=== PATIENT | female | born 2000 | race African-American/Black ===

== ENCOUNTER 2021-05-14 15:10 | Observation (INO) | payer MEDICAID, SELFPAY ==
[~2021-05-14] VITALS: Ht 154.9 cm; Wt 85.3 kg
[~2021-05-14 15:10] MED LIST: FERR-252 PO; PNV91TAB8 PO
[2021-05-14] MEDS ORDERED: BETAMETH ACET/BETAMETH NA PH 30 MG/5 ML VIAL IM SCH (15:20)
[2021-05-14 15:22] VITALS: BP 107/55
== END 2021-05-14 15:50 | disposition home or self-care (01) ==
LOC: MLD 15:10
PROVIDERS: ADMIT Obstetrics & Gynecology; ATTEND Obstetrics & Gynecology
DX: O26.893 Other specified pregnancy related conditions, third trimester (principal); R10.9 Unspecified abdominal pain; Z3A.30 30 weeks gestation of pregnancy
CPT/HCPCS: 59025; 96372; J0702; G0378

== ENCOUNTER 2021-05-19 13:05 | Observation (INO) | payer OTHER, SELFPAY ==
[~2021-05-19] VITALS: Ht 154.9 cm; Wt 85.3 kg
[2021-05-19 13:50] LABS: APPEARANCE,URINE CLEAR (CLEAR); BILIRUBIN,URINE NEGATIVE (NEGATIVE); BLOOD, URINE NEGATIVE (NEGATIVE); COLOR,URINE YELLOW (YELLOW); LEUKOCYTE ESTERASE ,URINE NEGATIVE (NEGATIVE); NITRITE, URINE NEGATIVE (NEGATIVE); UGLUCOSE NEGATIVE (NEGATIVE)
[2021-05-19 14:13] VITALS: BP 99/52
[2021-05-19] MEDS ORDERED: LACTATED RINGERS 1,000 ML IV SCH ×2 (14:40→15:40)
== END 2021-05-19 17:20 | disposition home or self-care (01) ==
LOC: MLD 13:05
PROVIDERS: ADMIT Obstetrics & Gynecology; ATTEND Obstetrics & Gynecology
DX: O62.9 Abnormality of forces of labor, unspecified (principal); O26.893 Other specified pregnancy related conditions, third trimester; R10.13 Epigastric pain; R10.2 Pelvic and perineal pain; R19.7 Diarrhea, unspecified; Z3A.31 31 weeks gestation of pregnancy; Z20.822 Contact with and (suspected) exposure to COVID-19
CPT/HCPCS: 59025; 76817; 81003; 87086; 87426; 96360; 96361; G0378; Q0092

== ENCOUNTER 2021-07-08 13:34 | Observation (INO) | payer OTHER, SELFPAY ==
[~2021-07-08] VITALS: Ht 154.9 cm; Wt 88.5 kg
[2021-07-08 14:24] VITALS: BP 107/51
== END 2021-07-08 15:35 | disposition home or self-care (01) ==
LOC: MLD 13:34
PROVIDERS: ADMIT Obstetrics & Gynecology; ATTEND Obstetrics & Gynecology
DX: O26.893 Other specified pregnancy related conditions, third trimester (principal); R10.2 Pelvic and perineal pain; Z20.822 Contact with and (suspected) exposure to COVID-19; O99.513 Diseases of the respiratory system complicating pregnancy, third trimester; J45.909 Unspecified asthma, uncomplicated; Z3A.38 38 weeks gestation of pregnancy
CPT/HCPCS: 59025; 87426; G0378; G0379

== ENCOUNTER 2021-07-14 23:10 | Inpatient (IN) | payer OTHER, SELFPAY ==
[~2021-07-14] VITALS: Ht 154.9 cm; Wt 88.5 kg
[2021-07-15 00:11] LABS: APPEARANCE,URINE CLOUDY (CLEAR); BILIRUBIN,URINE NEGATIVE (NEGATIVE); BLOOD, URINE NEGATIVE (NEGATIVE); COLOR,URINE YELLOW (YELLOW); LEUKOCYTE ESTERASE ,URINE NEGATIVE (NEGATIVE); NITRITE, URINE NEGATIVE (NEGATIVE); UGLUCOSE 1+ (NEGATIVE)
[2021-07-15 00:13] LABS: EOSINOPHILS % (AUTO) 7.4 % (0.0-4.0); HEMATOCRIT 27.8 % (36-48); HEMOGLOBIN 8.5 g/dL (12.0-16.0); LYMPHOCYTES # (AUTO) 6.5 K/uL (2.5-16.5); LYMPHOCYTES % (AUTO) 50.9 % (20.5-51.1); MEAN CORPUSCULAR HEMOGLOBIN 22 pg (27-31); MEAN CORPUSCULAR HGB CONC 31 g/dL (33-37); MEAN CORPUSCULAR VOLUME 72.4 fL (80-94); MONOCYTES # (AUTO) 0.3 K/uL (0.8-1.0); MONOCYTES % (AUTO) 2.6 % (1.7-9.3); NEUTROPHILS % (AUTO) 39.1 % (42.2-75.2); PLATELET COUNT (AUTO) 280 K/uL (140-450); RED BLOOD CELL COUNT(AUTO) 3.85 MIL/uL (4.20-5.40); RED CELL DISTRIBUTION WIDTH 20.6 % (11.6-13.7); WHITE BLOOD COUNT (AUTO) 12.9 K/uL (4.5-11.0)
[2021-07-15 00:38] LABS: ALBUMIN 2.4 g/dL (3.4-5.0); ANION GAP 13.4 (8-16); CARBON DIOXIDE 21.4 mmol/L (21-32); CREATININE 0.5 mg/dL (0.6-1.3); POTASSIUM 3.8 mmol/L (3.5-5.1); TOTAL BILIRUBIN 0.2 mg/dL (0.0-1.0)
[2021-07-15] MEDS: LACTATED RINGERS 1,000 ML IV SCH ×2 (02:31→05:30)
[2021-07-15] MEDS ORDERED: CLINDAMYCIN 900 MG/6 ML VIAL IV ONE (04:45)
[2021-07-15] MEDS ORDERED: CITRIC ACID/SODIUM CITRATE 30 ML UDC PO SCH (05:30)
[2021-07-15] MEDS ORDERED: CLINDAMYCIN 900 MG in DEXTROSE 5% 100 ML IV SCH (05:30)
[2021-07-15] MEDS ORDERED: MORPHINE PRES FREE 10 MG/10 ML AMP IV ONE (06:00)
[2021-07-15] MEDS ORDERED: ePHEDrine 50 MG/ML VIAL ONE (06:05)
[2021-07-15] MEDS ORDERED: PROMETHAZINE 25 MG/ML VIAL IVP PRN (06:05)
[2021-07-15] MEDS ORDERED: MEASLES, MUMPS, AND RUBELLA 1 VIAL SQVAC ONE (06:05)
[2021-07-15] MEDS ORDERED: METHYLERGONOVINE 0.2 MG/ML AMP IM PRN (06:05)
--- NOTE | 2021-07-15 06:30 | NUR ---
ARRIVED FOR DELIVERY IN OR - BABY ARRIVED AT 0636 - NO DISTRESS NOTED- BABY CRYING APPROPRIATELY - RN SHOWED BABY TO MOM - RTS RELEASED AFTER DELIVERY
[2021-07-15] MEDS ORDERED: OXYTOCIN 20 UNITS in LACTATED RINGERS 1,000 ML IV SCH (06:40)
[2021-07-15] MEDS ORDERED: KETOROLAC 30 MG/ML VIAL IVP PRN (06:40)
[2021-07-15] MEDS ORDERED: ONDANSETRON 4 MG/2 ML VIAL IVP PRN (06:40)
[2021-07-15] MEDS ORDERED: NALOXONE 0.4 MG/ML VIAL IVP PRN ×2 (06:40)
[2021-07-15] MEDS ORDERED: OXYTOCIN 10 UNITS/ML VIAL ONE ×2 (06:43)
[2021-07-15] MEDS ORDERED: ONDANSETRON 4 MG/2 ML VIAL ONE ×2 (06:43)
--- NOTE | 2021-07-15 08:58 | NUR ---
PATIENT HAS BEEN SCREENED AND CATEGORIZED LOW NUTRITION RISK. PATIENT WILL BE SEEN WITHIN 7 DAYS OF ADMISSION. 07/21/21 REVIEWED BY TENA BENDER RD
[2021-07-15] MEDS ORDERED: bisacodyL 10 MG SUPP RC SCH (09:00)
[2021-07-15] MEDS ORDERED: OXYTOCIN 20 UNITS/LR PREMIX 1,000 ML IV ONE ×2 (10:05→19:47)
[2021-07-15] MEDS: diphenhydrAMINE 50 MG/ML VIAL IVP PRN ×2 (10:38→18:40)
[2021-07-15] MEDS: OXYTOCIN 20 UNITS in LACTATED RINGERS 1,000 ML IV SCH ×2 (11:04→19:55)
[2021-07-16] MEDS: diphenhydrAMINE 50 MG/ML VIAL IVP PRN (00:20)
[2021-07-16 05:29] LABS: BASOPHILS % (AUTO) 0.2 % (0.0-2.0); EOSINOPHILS % (AUTO) 0.2 % (0.0-4.0); HEMATOCRIT 25.4 % (36-48); HEMOGLOBIN 7.8 g/dL (12.0-16.0); LYMPHOCYTES # (AUTO) 2.4 K/uL (2.5-16.5); LYMPHOCYTES % (AUTO) 16.8 % (20.5-51.1); MEAN CORPUSCULAR HEMOGLOBIN 22 pg (27-31); MEAN CORPUSCULAR HGB CONC 31 g/dL (33-37); MEAN CORPUSCULAR VOLUME 72.7 fL (80-94); MONOCYTES % (AUTO) 7.3 % (1.7-9.3); NEUTROPHILS # (AUTO) 10.7 K/uL (1.8-7.7); NEUTROPHILS % (AUTO) 75.5 % (42.2-75.2); PLATELET COUNT (AUTO) 247 K/uL (140-450); RED BLOOD CELL COUNT(AUTO) 3.49 MIL/uL (4.20-5.40); RED CELL DISTRIBUTION WIDTH 20.5 % (11.6-13.7); WHITE BLOOD COUNT (AUTO) 14.1 K/uL (4.5-11.0)
[2021-07-16 08:08] LABS: HEPATITIS B SURFACE ANTIGEN Negative (Negative)
[2021-07-16] MEDS: oxyCODONE/APAP 5/325 MG 1 TAB TAB PO PRN ×2 (08:45→18:17)
[2021-07-16] MEDS ORDERED: SODIUM FERRIC GLUCONATE 125 MG in NACL 0.9% 100 ML IV SCH ×2 (16:50→16:55)
[2021-07-16] MEDS ORDERED: CAMERA MC ONE (19:43)
[2021-07-17] MEDS: oxyCODONE/APAP 5/325 MG 1 TAB TAB PO PRN ×2 (02:28→13:32)
[2021-07-17] MEDS: FERROUS SULFATE 325 MG TABEC PO SCH ×2 (05:00→09:08)
[2021-07-17 06:31] LABS: BASOPHILS % (AUTO) 0.2 % (0.0-2.0); EOSINOPHILS # (AUTO) 0.1 K/uL (0-0.4); EOSINOPHILS % (AUTO) 0.7 % (0.0-4.0); HEMATOCRIT 23.1 % (36-48); HEMOGLOBIN 7.2 g/dL (12.0-16.0); LYMPHOCYTES # (AUTO) 2.5 K/uL (2.5-16.5); LYMPHOCYTES % (AUTO) 19.9 % (20.5-51.1); MEAN CORPUSCULAR HEMOGLOBIN 22 pg (27-31); MEAN CORPUSCULAR HGB CONC 31 g/dL (33-37); MEAN CORPUSCULAR VOLUME 71.5 fL (80-94); MONOCYTES % (AUTO) 7.7 % (1.7-9.3); NEUTROPHILS % (AUTO) 71.5 % (42.2-75.2); PLATELET COUNT (AUTO) 245 K/uL (140-450); RED BLOOD CELL COUNT(AUTO) 3.23 MIL/uL (4.20-5.40); RED CELL DISTRIBUTION WIDTH 20.3 % (11.6-13.7); WHITE BLOOD COUNT (AUTO) 12.5 K/uL (4.5-11.0)
== END 2021-07-17 17:45 | disposition home or self-care (01) | DRG 540 ==
LOC: MLD 23:10 → MFCC 07-15 07:00
PROVIDERS: ADMIT Obstetrics & Gynecology; ATTEND Obstetrics & Gynecology
PROC: 10D00Z1 Extraction of Products of Conception, Low, Open Approach (ICD-10-PCS; principal; 2021-07-15 06:00)
DX: O99.52 Diseases of the respiratory system complicating childbirth (principal); D62 Acute posthemorrhagic anemia; O36.63X0 Maternal care for excessive fetal growth, third trimester, not applicable or unspecified; J45.909 Unspecified asthma, uncomplicated; Z20.822 Contact with and (suspected) exposure to COVID-19; Z37.0 Single live birth; Z3A.39 39 weeks gestation of pregnancy
CPT/HCPCS: 36415; 51702; 80053; 81003; 85025; 86592; 86762; 86886; 86900; 86901; 87081; 87340; J1200; J2270; J2405; J2590; J2916; J3490; J7120